=== PATIENT | male | born 1975 | race African-American/Black ===

== ENCOUNTER 2017-01-17 10:56 | Emergency (ER) | payer OTHER ==
[~2017-01-17] VITALS: Ht 182.9 cm; Wt 84.1 kg
[~2017-01-17 10:56] MED LIST: CAR8A PO; CYCL7.5T27 PO; FINA5TAB9 PO; HYDR-4003 PO; MULT1CAP33 PO; OMEP20CA11 PO; OMEP20TA86 PO; ONDA4TAB9 PO; OXYB10TA PO; TOPI50TA88 PO
[2017-01-17 11:24] VITALS: BP 119/72; PULSE 52; O2SAT 100
== END 2017-01-17 11:33 | disposition left against medical advice (07) ==
LOC: SED 10:56
DX: R22.2 Localized swelling, mass and lump, trunk (principal)

== ENCOUNTER 2017-02-01 07:15 | Emergency (ER) | payer OTHER ==
[~2017-02-01] VITALS: Ht 182.9 cm; Wt 81.8 kg
[2017-02-01 07:17] VITALS: BP 121/61; PULSE 64; RESP 16; O2SAT 100
--- NOTE | 2017-02-01 07:38 | ED.REPORT ---
HPI-Extremity Problem Upper Date of Service February 01, 2017 ED Provider: Javi Up MD 41 year old male presents to the ER complaining of right shoulder pain onset three days ago. Pain is exacerbated by abduction, flexion, and extension. Symptoms have been treated with Tylenol without relief. Patient denies any known mechanism of injury, but states that he sleeps on his right side with his arm abducted. He works out regularly. Nursing Notes Stated Complaint: RIGHT SHOULDER PAIN Chief Complaint: Extremity Trauma Nursing Notes Reviewed: Yes Allergies: Coded Allergies: ibuprofen (Verified Allergy, Intermediate, Hives, 04/30/16) Scheduled Doxazosin (Cardura) 8 Mg Tablet 8 MG PO HS Finasteride (Finasteride) 5 Mg Tablet 5 MG PO DAILY Multivitamin (Multivitamins) 1 Each Capsule 1 EACH PO DAILY Omeprazole (Omeprazole) 20 Mg Capsule.dr 20 MG PO DAILY Omeprazole (Omeprazole) 20 Mg Tablet.dr 20 MG PO DAILY Oxybutynin Chloride ER (Oxybutynin Chloride ER) 10 Mg Tab.er.24 10 MG PO DAILY Scheduled PRN Cyclobenzaprine (Cyclobenzaprine) 7.5 Mg Tablet 7.5 MG PO TID PRN PRN Spasm Hydrocodone-Acetaminophen 5-325 mg (Hydrocodone-Acetaminophen 5-325 mg) 1 Each Tablet 1 TABLET PO QID PRN PRN For Pain Ondansetron ODT (Zofran ODT) 4 Mg Tablet 4 MG PO Q4H PRN PRN For Nausea Topiramate (Topiramate) 50 Mg Tablet 50 MG PO DAILY PRN PRN Headache General Time Seen by MD: 07:36 Chief Complaint Shoulder injury right Hx Obtained From: Patient Arrived By: Walk-in Onset Occurred: 3 days ago Symptom Duration: Since onset Caused by: Mechanism unknown Location: : Shoulder right Quality: Painful Severity: Current: Moderate Severity: Maximum: Moderate Pertinent Negative: Pt denies other symptoms Exacerbated by: Range of motion, Abducting, Extension, Flexion Pertinent Negative: Relieved by nothing Similar Sx Previous: No Past Medical History Past Medical History Notes: Neurologist: Dr. Jung PCP: Dr. 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 Ambulatory Status Independent Review of Systems Musculoskeletal: Reports: Joint pain (Right Shoulder), Denies: Back pain, Extremity pain, Lumbar pain, Neck pain, Thoracic pain Neurologic: Denies: Headache Complete sys rev & neg: except as marked. Physical Exam Initial Vital Signs Vital Signs (First) Date Time Temp Pulse Resp B/P Pulse Ox O2 Delivery O2 Flow Rate FiO2 02/01/17 07:17 37.0 64 16 121/61 100 Room Air Initial VS: Reviewed General/Constitutional: Well-developed, Well-nourished Head / Eyes: Atraumatic, Normocephalic Neck: Supple, Non-tender, Full range of motion Respiratory: Breath sounds normal, Clear to auscultation, No respiratory distress Cardiovascular: Regular rate & rhythm, Heart sounds normal, Intact distal pulses Lower Extremities: Vascular intact, Neuro intact, No swelling, No tenderness Skin: Warm, Dry, No cyanosis Neurologic: Alert, Oriented, Nonfocal Upper Extremity / MS: Full range of motion, Neurologic intact, Vascular intact Diffuse tenderness over the Right anterior shoulder at 120 degrees of abduction. Strength 5/5 in bilateral upper extremities. No biceps tendon tenderness. Re-Eval/Medical Decision Med Decision/Clinical Course 41-year-old male right shoulder pain when lifting his arm above his shoulder last couple days. Tender anterior right shoulder. His strength is 5 out of 5. His full range of motion. He is not tender over the biceps tendon. Possible rotator cuff tendonitis vs strain. Recommend range of motion exercises. No heavy lifting until pain resolves. Follow up with primary doctor in several days for reevaluation. Ibuprofen, rice. Re-Evaluation/Progress : Time of Eval: 07:47 Re-Evaluation/Progress Note: Discussed physical examination and plan to discharge. Patient is amenable to the plan. Return precautions given. All other questions addressed. Counseled Regarding: Diagnosis, Need for follow-up, When/why to return to ED Discharge & Departure Impression: Primary Impression: Rotator cuff injury Disposition: Home Discharge Condition All VS Reviewed: Yes Condition: Stable Patient Instructions: Rotator Cuff Injury (DC) Additional Instructions: Use Tylenol as directed for pain. Rest your shoulder as much as possible. Ice three times daily for 20 minutes at a time. Avoid any activity that causes pain for about two weeks. Follow-up with your primary care provider if your pain has not improved in the next two weeks. After two weeks have passed, start performing the rotator cuff exercises as directed. Return to the ER if you develop any new or worsening pain, or any other concerning symptoms. Referrals: Danay Lewis MD (PCP) Scribe Attestation Portions of this note were transcribed by Jomar Jackson. I, Dr. Up, personally performed the history, physical exam and medical decision-making; I reviewed and confirmed the accuracy of the information in the transcribed note. Signed by: Marc Lomeli, 02/01/2017 at 07:50 copies to: Danay Lewis MD, Ben M MD February 01, 2017 07:38 JOMAR JACKSON February 01, 2017 07:45
== END 2017-02-01 07:56 | disposition home or self-care (01) ==
LOC: SED 07:15
DX: S46.001A Unspecified injury of muscle(s) and tendon(s) of the rotator cuff of right shoulder, initial encounter (principal); X50.9XXA Other and unspecified overexertion or strenuous movements or postures, initial encounter; Y93.89 Activity, other specified; Y92.9 Unspecified place or not applicable; Y99.8 Other external cause status; Z88.6 Allergy status to analgesic agent

== ENCOUNTER 2017-03-07 18:28 | Emergency (ER) | payer OTHER ==
[~2017-03-07] VITALS: Ht 182.9 cm; Wt 83.6 kg
[2017-03-07 18:33] VITALS: BP 136/68; PULSE 84; RESP 20; O2SAT 97
--- NOTE | 2017-03-07 19:32 | ED.REPORT ---
HPI-Rash / Abscess Date of Service Mar 07, 2017 ED Provider: Son Lopez History of Present Illness: 41yo male with 4 hours of new onset bilat arm hives. He was helping friend with yard work today. Denies any known new exposure. No fever, wheezing, SOB. Nursing Notes Stated Complaint: RASH ON ARMS Chief Complaint: Skin Rash/Abscess Nursing Notes Reviewed: Yes Allergies: Coded Allergies: ibuprofen (Verified Allergy, Intermediate, Hives, 04/30/16) Scheduled Doxazosin (Cardura) 8 Mg Tablet 8 MG PO HS Finasteride (Finasteride) 5 Mg Tablet 5 MG PO DAILY Multivitamin (Multivitamins) 1 Each Capsule 1 EACH PO DAILY Omeprazole (Omeprazole) 20 Mg Capsule.dr 20 MG PO DAILY Omeprazole (Omeprazole) 20 Mg Tablet.dr 20 MG PO DAILY Oxybutynin Chloride ER (Oxybutynin Chloride ER) 10 Mg Tab.er.24 10 MG PO DAILY Scheduled PRN Cyclobenzaprine (Cyclobenzaprine) 7.5 Mg Tablet 7.5 MG PO TID PRN PRN Spasm Hydrocodone-Acetaminophen 5-325 mg (Hydrocodone-Acetaminophen 5-325 mg) 1 Each Tablet 1 TABLET PO QID PRN PRN For Pain Ondansetron ODT (Zofran ODT) 4 Mg Tablet 4 MG PO Q4H PRN PRN For Nausea Topiramate (Topiramate) 50 Mg Tablet 50 MG PO DAILY PRN PRN Headache General Time Seen by MD: 19:31 Chief Complaint Rash Hx Obtained From: Patient Arrived By: Walk-in Onset Occurred: 1 - 4 hours ago Context of Onset: Allergy, environmental Symptom Duration: Since onset Location: : Arm Severity: Current: No pain currently Associated with: Denies Dizziness, Denies Fever, Denies Vomiting Pertinent Negative: Pt denies other symptoms Pertinent Negative: Exacerbated by nothing Related History: Reports: Allergic reaction Recent Healthcare: No recent doctor visit Similar Sx Previous: No Past Medical History Past Medical History Notes: Neurologist: Dr. Jung PCP: Dr. 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 Ambulatory Status Independent Review of Systems Constitutional: Denies: Chills, Fever Respiratory: Denies: Shortness of breath, Wheezing Cardiovascular: Denies: Chest pain Skin: Reports Itching, Reports Rash Complete sys rev & neg: except as marked. Physical Exam Initial Vital Signs Vital Signs (First) Date Time Temp Pulse Resp B/P Pulse Ox O2 Delivery O2 Flow Rate FiO2 03/07/17 18:33 36.4 84 20 136/68 97 Room Air Initial VS: Reviewed General/Constitutional: Awake, Alert, No acute distress, Well hydrated, Not toxic appearing Color / Condition: Positive: Rash present Rash / Lesion Location: Positive: Arm L, Arm R Rash / Lesion Pattern: Positive: Urticarial Respiratory / Chest: Breath sounds NL, Breath sounds = bilat, No respiratory distress Cardiovascular: Heart rate NL, Regular rhythm, Heart sounds NL Re-Eval/Medical Decision Med Decision/Clinical Course Straightforward urticaria, likely secondary to environmental exposure while doing yard work. No worrisome features. Will treat with 3 day couse of Prednisone and hydroxyzine. S/s for which to seek further medical care discussed. Pt. acknowledghed understanding of treatment plan. Differential Diagnosis: Positive: Urticaria Diagnosis Appears: Evident Counseled Regarding: Diagnosis, Need for follow-up, When/why to return to ED Discharge & Departure Impression: Primary Impression: Urticaria Disposition: Home Patient Instructions: Urticaria (ED) Additional Instructions: Stay cool, loose fitting clothing, take meds as prescribed. Follow up if not improving as expected, return to ER if anything worsens. Referrals: Danay Lewis MD (PCP) 2-3 days if not improving as expected EDSupervising Provider for APC: Stanton Rayo MD, Christopher R PAC Mar 07, 2017 19:32
[2017-03-07] MEDS ORDERED: predniSONE 20 mg Tablet PO ONE (19:40)
[2017-03-07] MEDS ORDERED: diphenhydrAMINE 25 mg Capsule PO ONE (19:40)
[2017-03-07] MEDS ORDERED: PRE20 PO (19:59)
[2017-03-07] MEDS ORDERED: HYDR25CA PO (19:59)
[2017-03-07 20:11] VITALS: BP 128/67; PULSE 61; RESP 15; O2SAT 99
== END 2017-03-07 20:06 | disposition home or self-care (01) ==
LOC: SED 18:28
DX: L50.9 Urticaria, unspecified (principal); Z88.8 Allergy status to other drugs, medicaments and biological substances

== ENCOUNTER 2017-03-24 10:07 | Emergency (ER) | payer OTHER ==
[~2017-03-24] VITALS: Ht 182.9 cm; Wt 81.0 kg
[~2017-03-24 10:07] MED LIST changes: +HYDR25CA PO; +PRE20 PO
[2017-03-24 10:24] VITALS: BP 133/83; PULSE 65; RESP 16; O2SAT 99
--- NOTE | 2017-03-24 10:48 | ED.REPORT ---
HPI-Extremity Problem Upper Date of Service Mar 24, 2017 ED Provider: Noah Hilario MD 41 y/o male with no pertinent hx presents to the ED complaining of right shoulder pain, onset 3 days ago. He rates the pain 9/10 and states it is exacerbated by flexion and extension. He was helping a friend with house repairs when he picked up something heavy and began experiencing severe pain. Associated sx include numbness and tingling in his right hand. He denies hx of shoulder surgeries, shoulder dislocation and previous shoulder problems. He took Tylenol yesterday with little improvement. Nursing Notes Stated Complaint: RIGHT SHOULDER PAIN Chief Complaint: Extremity Trauma Nursing Notes Reviewed: Yes ([employer], meds not reconciled) Allergies: Coded Allergies: ibuprofen (Verified Allergy, Intermediate, Hives, 04/30/16) Scheduled Doxazosin (Cardura) 8 Mg Tablet 8 MG PO HS Finasteride (Finasteride) 5 Mg Tablet 5 MG PO DAILY Multivitamin (Multivitamins) 1 Each Capsule 1 EACH PO DAILY Omeprazole (Omeprazole) 20 Mg Capsule.dr 20 MG PO DAILY Omeprazole (Omeprazole) 20 Mg Tablet.dr 20 MG PO DAILY Oxybutynin Chloride ER (Oxybutynin Chloride ER) 10 Mg Tab.er.24 10 MG PO DAILY Prednisone (PredniSONE) 20 Mg Tablet 40 MG PO DAILY Scheduled PRN Cyclobenzaprine (Cyclobenzaprine) 7.5 Mg Tablet 7.5 MG PO TID PRN PRN Spasm Hydrocodone-Acetaminophen 5-325 mg (Hydrocodone-Acetaminophen 5-325 mg) 1 Each Tablet 1 TABLET PO QID PRN PRN For Pain Hydrocodone-Acetaminophen 5-325 mg (Hydrocodone-Acetaminophen 5-325 mg) 1 Each Tablet 0.5-2 TABLET PO Q6H PRN PRN For Pain Hydroxyzine Pamoate (Vistaril) 25 Mg Capsule 25 MG PO TID PRN PRN For Itching Ondansetron ODT (Zofran ODT) 4 Mg Tablet 4 MG PO Q4H PRN PRN For Nausea Topiramate (Topiramate) 50 Mg Tablet 50 MG PO DAILY PRN PRN Headache General Time Seen by MD: 10:45 Chief Complaint Shoulder injury right (shoulder pain) Hx Obtained From: Patient Arrived By: Walk-in Onset Occurred: Yesterday Symptom Duration: Since onset Location: : Shoulder right Quality: Painful Severity: Current: Pain level 9 out of 10 Severity: Maximum: Pain level 9 out of 10 Recent Healthcare: No recent doctor visit Similar Sx Previous: Yes Past Medical History Past Medical History Notes: Neurologist: Dr. Jung PCP: Dr. 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 Ambulatory Status Independent Review of Systems Musculoskeletal: Reports: Joint pain (right shoulder) Complete sys rev & neg: except as marked. Physical Exam Initial Vital Signs Vital Signs (First) Date Time Temp Pulse Resp B/P Pulse Ox O2 Delivery O2 Flow Rate FiO2 03/24/17 10:24 36.7 65 16 133/83 99 Room Air Initial VS: Reviewed, Vital signs normal Head / Eyes: Atraumatic, Normocephalic Neck: Supple, Non-tender, Full range of motion Respiratory: Breath sounds normal, No respiratory distress Cardiovascular: Regular rate & rhythm, Intact distal pulses Abdomen / GI: Soft, Non-tender Lower Extremities: Vascular intact, Neuro intact, No swelling, No tenderness Skin: Warm, Dry, No cyanosis Neurologic: Alert, Oriented, Nonfocal General/Constitutional: Awake, Alert, No acute distress, Cooperative Upper Extremity / MS: Atraumatic, Full range of motion, No deformity, Neurologic intact, Vascular intact No point tenderness. No weakness on rotator cuff testing. Interpretation & Diagnostics X-Ray Interpretation Xray Interpretation: IMPRESSION: Unremarkable right shoulder radiographs. Dictated by: Demarco Pimentel M.D. on 03/24/2017 at 10:36 Approved by: Demarco Pimentel M.D. on 03/24/2017 at 10:39 X-Ray Ordered: Shoulder right Interpretation / Wet Read by: Interpret - Radiologist Re-Eval/Medical Decision Med Decision/Clinical Course This is a 41-year-old right-hand dominant male presents complaining of three- day history of increasing right shoulder pain. He did do some moving with a friend, but had no specific event or issue. He has had a previous ED visit with a possible rotator cuff injury along over a month ago. He did not have radiographs. Abduction, external rotation. He has had no numbness or paresthesias. He has no additional complaints. On exam his fifth well- appearing 32-year-old male distress. He does have pain with active and passive range of motion, but he has no weakness or findings of likely rotator cuff tear. Additionally he has no AC tenderness, step-off or deformity, and the arm is neurovascularly intact. Plain radiographs were negative. I remain suspicious about a rotator cuff strain, I doubt complete tear. However given 2 ED visits over the past 6 weeks with right shoulder pain, I am providing referral to orthopedics for follow-up care. Patient reports an allergy to ibuprofen is being given a few hydrocodone for pain control. Routine precautions and pertinent information and rotator cuff pathology provided. Patient is discharged in stable condition Source of Hx: Old records Re-Evaluation/Progress : Time of Eval: 12:04 Patient Status: Condition improved Re-Evaluation/Progress Note: Rechecked pt. Discussed imaging results, diagnosis and plan to discharge. Pt understands and agrees with the plan. F/U instructions and RTER warning given. All questions addressed. Differential Diagnosis: Positive: Shoulder strain, Negative: Abrasion, Abscess, Amputation, Arterial occlus/ischemia, Avulsion injury, Clavicle fracture, Colles' fracture, Compartment syndrome, Fracture, Gamekeepers thumb, Humerus fracture, Joint effusion, Metacarpal fracture, Shoulder disloc ant, Shoulder disloc post Counseled Regarding: Diagnosis, Need for follow-up, When/why to return to ED Discharge & Departure Impression: Primary Impression: Rotator cuff injury Encounter type: initial encounter Laterality: right Qualified Code: S46.001A - Unspecified injury of muscle(s) and tendon(s) of the rotator cuff of right shoulder, initial encounter Disposition: Home Discharge Condition All VS Reviewed: Yes Condition: Stable Patient Instructions: Rotator Cuff Injury (ED) Additional Instructions: 1. Your history and exam suggest an injury to the rotator cuff, although I do not find signs of a complete tear. 2. Your Xray was normal. 3. No heavy lifting. Other activities as tolerated. Gentle range of motion exercises recommended. 4. Call for an appointment for re-evaluation with the orthopedist Dr. Hernandez. 5. If needed for more severe pain take hydrocodone/APAP 5/325 1/2 tab up to 2 tabs. Try to use sparingly. NOTE: This medication contains a narcotic and causes drowsiness. No driving for at least 4 hours after taking Referrals: Danay Lewis MD (PCP) Scribe Attestation Portions of this note were transcribed by Mejia Delgado. I, , personally performed the history, physical exam and medical decision- making;I reviewed and confirmed the accuracy of the information in the transcribed note. Signed by Marc Askew. 03/24/17 12:04 copies to: Danay Lewis MD, Matthew F MD Mar 24, 2017 10:48 Mejia Delgado Mar 24, 2017 11:02
[2017-03-24] MEDS ORDERED: HYDROcodone-APAP 5-325 mg Tablet PO ONE (11:05)
--- NOTE | 2017-03-24 11:40 | DRSVH ---
PROCEDURE: X-RAY RIGHT SHOULDER, MINIMUM TWO VIEWS ([id number]) INDICATIONS: Right shoulder pain TECHNIQUE: 3 views of the shoulder were acquired. COMPARISON: None. FINDINGS: Bones: No fractures or dislocations. No suspicious bony lesions. Visualized ribs appear intact. N o significant degenerative changes of the right shoulder joints are evident. Soft tissues: No suspicious soft tissue calcifications. Shunt catheter is seen overlying the right neck and chest. IMPRESSION: Unremarkable right shoulder radiographs. Dictated by: Demarco Pimentel M.D. on 03/24/2017 at 10:36 Approved by: Demarco Pimentel M.D. on 03/24/2017 at 10:39
[2017-03-24] MEDS ORDERED: HYDR-4003 PO (11:55)
[2017-03-24 12:12] VITALS: BP 138/72; PULSE 48; RESP 16; O2SAT 99
== END 2017-03-24 12:13 | disposition home or self-care (01) ==
LOC: SED 10:07
DX: S46.001A Unspecified injury of muscle(s) and tendon(s) of the rotator cuff of right shoulder, initial encounter (principal); X50.0XXA Overexertion from strenuous movement or load, initial encounter; Y93.89 Activity, other specified; Y92.89 Other specified places as the place of occurrence of the external cause; Y99.8 Other external cause status; R20.0 Anesthesia of skin; R20.2 Paresthesia of skin; Z88.8 Allergy status to other drugs, medicaments and biological substances

== ENCOUNTER 2017-05-04 11:22 | Emergency (ER) | payer OTHER ==
[~2017-05-04] VITALS: Ht 182.9 cm; Wt 84.1 kg
[2017-05-04 11:27] VITALS: BP 149/87; PULSE 84; RESP 16; O2SAT 99
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
--- NOTE | 2017-05-04 12:28 | DRSVH ---
PROCEDURE: CT BRAIN WITHOUT CONTRAST ([id number]) INDICATIONS: 41 year-old male with concussion and headaches. TECHNIQUE: Noncontrast 4.5 mm thick angled axial sections acquired from the foramen magnum to the vertex, with c oronal reformats. COMPARISON: [facility], CT, CT BRAIN WO CON, 01/17/2017, 15:43. [facility], CT, CT BRAIN WO CON, 07/09/2016, 19:12. [facility], CT, BRAIN W/O CONTRAST, 02/03/2015, 1 2:27. FINDINGS: Image quality: Excellent. CSF spaces: Basal cisterns are patent. No extra-axial fluid collections. Ventricles are normal in size and shape. Right parietal ventricular shunt remains in expected position. Brain: No midline shift. No intracranial masses or hemorrhage. Rhodes-white matter interface is norm al. Right basal ganglia prominent perivascular space is again noted. Skull and face: Calvarium and visualized facial bones are intact, without suspicious lesions. As bef ore, orbital gaze directions appear mildly disconjugate. Sinuses: Visualized sinuses and mastoids are clear. IMPRESSION: 1. No acute intracranial abnormalities. Right parietal ventricular shunt remains in expected position . 2. Mildly disconjugate orbital gaze directions may suggest chronic diplopia. Dictated by: Shyam Russell M.D. on 05/04/2017 at 12:22 Approved by: Shyam Russell M.D. on 05/04/2017 at 12:26
[2017-05-04 13:06] VITALS: BP 131/79; PULSE 64; RESP 15; O2SAT 95
== END 2017-05-04 13:07 | disposition home or self-care (01) ==
LOC: SED 11:22
DX: S06.0X1A Concussion with loss of consciousness of 30 minutes or less, initial encounter (principal); V47.6XXA Car passenger injured in collision with fixed or stationary object in traffic accident, initial encounter; Y93.89 Activity, other specified; Y92.410 Unspecified street and highway as the place of occurrence of the external cause; Y99.8 Other external cause status; M54.2 Cervicalgia; H53.8 Other visual disturbances; Z98.890 Other specified postprocedural states; Z88.6 Allergy status to analgesic agent